=== PATIENT | male | born 1980 | race Caucasian/White ===

== ENCOUNTER 2018-03-12 03:13 | Emergency (ER) | payer OTHER ==
[~2018-03-12] VITALS: Ht 170.2 cm; Wt 113.4 kg
[~2018-03-12 03:13] MED LIST: BACTRIM DS TAB1 EACH PO; HYDROCODONE-AP1 EAC6 PO; IBUPROFEN 800800 M1 PO; LOPERAMIDE2 MG PO; NOHOMEMEDICATIONS; NORCO 5-325 TA1 EAC1 PO; ZOFRAN4 MG PO
[2018-03-12] MEDS ORDERED: PROAIR HFA8.5 GM INH (03:36)
[2018-03-12] MEDS ORDERED: TUSSIONEX PENN115 ML PO (03:36)
[2018-03-12] MEDS ORDERED: PREDNISONE50 MG PO (03:36)
[2018-03-12] MEDS ORDERED: NASONEX17 GM NASAL (03:36)
[2018-03-12 04:15] VITALS: BP 140/94
== END 2018-03-12 04:16 | disposition home or self-care (01) ==
LOC: M.ERS 03:13
DX: J40 Bronchitis, not specified as acute or chronic (principal); F41.9 Anxiety disorder, unspecified; F17.210 Nicotine dependence, cigarettes, uncomplicated

== ENCOUNTER 2019-09-04 12:43 | Emergency (ER) | payer BC ==
[~2019-09-04] VITALS: Ht 170.2 cm; Wt 117.9 kg
[~2019-09-04 12:43] MED LIST changes: +NASONEX17 GM NASAL; +PREDNISONE50 MG PO; +PROAIR HFA8.5 GM INH; +TUSSIONEX PENN115 ML PO
[2019-09-04 13:36] LABS: ABSOLUTE BASOPHILS 0.1 thou/uL (0.0-0.2); ABSOLUTE EOSINOPHILS 0.1 thou/uL (0.0-0.7); ABSOLUTE LYMPHOCYTES 1.8 thou/uL (0.8-5.3); ABSOLUTE MONOCYTES 0.7 thou/uL (0.0-1.2); ABSOLUTE NEUTROPHILS 7.8 thou/uL (1.6-8.1); BASOPHILS 0.9 %; EOSINOPHILS 1.2 %; HEMATOCRIT 46.9 % (42.0-52.0); HEMOGLOBIN 16.4 gm/dL (14.0-18.0); MCH 30.9 pg (26.0-34.0); MCV 88.4 fL (80.0-100.0); MONOCYTES 6.6 %; MPV 9.8 fl. (7.2-11.1); NUCLEATED RBCS 0 /100WBC; PLATELET COUNT* 292 thou/uL (150-400); POLYS 74.3 %; RBC 5.31 mil/uL (4.50-6.00); RDW-CV 14.8 % (10.5-14.5); WBC 10.5 thou/uL (4.0-11.0)
[2019-09-04 13:41] LABS: URINE BILIRUBIN NEGATIVE (Negative); URINE BLOOD NEGATIVE (Negative); URINE CLARITY CLEAR; URINE COLOR YELLOW; URINE GLUCOSE-RANDOM 1+ (Negative); URINE KETONES NEGATIVE (Negative); URINE LEUKOCYTES-REFLEX NEGATIVE (Negative); URINE NITRITE-REFLEX NEGATIVE (Negative); URINE PROTEIN 1+ (Negative); URINE SPECIFIC GRAVITY 1.015 (1.005-1.030); URINE UROBILINOGEN 0.2 E.U./dl (0.2-1.0)
[2019-09-04 13:44] LABS: CALCIUM 9.5 mg/dL (8.5-10.1); CREATININE 0.9 mg/dL (0.6-1.3); POTASSIUM 4.2 mmol/L (3.5-5.1)
[2019-09-04 13:48] LABS: ALBUMIN 3.8 g/dL (3.4-5.0); TOTAL BILIRUBIN 0.4 mg/dL (<0.1-1.0); TOTAL PROTEIN 8.4 g/dL (6.4-8.2)
[2019-09-04] MEDS ORDERED: ONDANSETRON ODT4 MG PO (14:16)
[2019-09-04] MEDS ORDERED: PROMETHAZINE V120 ML PO (14:16)
[2019-09-04 14:26] LABS: INFLUENZA A ANTIGEN Negative (Negative); INFLUENZA B ANTIGEN Negative (Negative)
[2019-09-04 14:31] VITALS: BP 147/99
--- NOTE | 2019-09-04 15:43 | EKG ---
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1980 Requested By: Mónica Palm Order Number: [id number] MD: Joaquin Frias Measurements Intervals [place] Rate: 83 P: 4 VA: 183 QRS: 112 QRSD: 89 T: 21 QT: 350 QTc: 412 Interpretive Statements Sinus rhythm Anterior infarct, old Borderline ST elevation, lateral leads Baseline wander in lead(s) V4,V5,V6 No previous ECG available for comparison Electronically Signed On 09-04-2019 15:43:12 DRIVER LICENSE EXAMINER by Joaquin Frias [email or web address] <ELECTRONICALLY SIGNED> By: Joaquin Frias MD, [facility] 09/04/19 1543 1302 1302 Joaquin Frias MD, FACC /EPI
== END 2019-09-04 14:32 | disposition home or self-care (01) ==
LOC: M.ERS 12:43
PROVIDERS: Physician Assistant
DX: B34.9 Viral infection, unspecified (principal); R19.7 Diarrhea, unspecified; F41.9 Anxiety disorder, unspecified; F17.210 Nicotine dependence, cigarettes, uncomplicated

== ENCOUNTER 2020-05-23 02:01 | Emergency (ER) | payer BC ==
[~2020-05-23] VITALS: Ht 170.2 cm; Wt 127.0 kg
[~2020-05-23 02:01] MED LIST changes: +ONDANSETRON ODT4 MG PO; +PROMETHAZINE V120 ML PO
[2020-05-23 04:09] VITALS: BP 130/65
== END 2020-05-23 04:09 | disposition home or self-care (01) ==
LOC: M.ERS 02:01
DX: S01.81XA Laceration without foreign body of other part of head, initial encounter (principal); F17.210 Nicotine dependence, cigarettes, uncomplicated; W22.8XXA Striking against or struck by other objects, initial encounter; Y93.89 Activity, other specified; Y92.89 Other specified places as the place of occurrence of the external cause; Y99.8 Other external cause status

== ENCOUNTER 2021-02-24 04:48 | Emergency (ER) | payer BC ==
[~2021-02-24] VITALS: Ht 170.2 cm; Wt 127.0 kg
[2021-02-24] MEDS ORDERED: MEDROLDOSEPACK PO (06:18)
[2021-02-24] MEDS ORDERED: PROMETHAZINE-C473 ML PO (06:18)
[2021-02-24] MEDS ORDERED: ZPAK PO (06:18)
[2021-02-24 06:50] VITALS: BP 141/99
[2021-02-24] MEDS ORDERED: VENTOLIN HFA 1818 GM INH (06:56)
== END 2021-02-24 06:50 | disposition home or self-care (01) ==
LOC: M.ERS 04:48
DX: J40 Bronchitis, not specified as acute or chronic (principal); Z20.822 Contact with and (suspected) exposure to COVID-19; F17.210 Nicotine dependence, cigarettes, uncomplicated

== ENCOUNTER 2021-03-10 21:55 | Emergency (ER) | payer BC ==
[~2021-03-10] VITALS: Ht 170.2 cm; Wt 127.0 kg
[~2021-03-10 21:55] MED LIST changes: +MEDROLDOSEPACK PO; +PROMETHAZINE-C473 ML PO; +VENTOLIN HFA 1818 GM INH; +ZPAK PO
[2021-03-10 22:18] LABS: ABSOLUTE BASOPHILS 0.1 thou/uL (0.0-0.2); ABSOLUTE EOSINOPHILS 0.2 thou/uL (0.0-0.7); ABSOLUTE LYMPHOCYTES 2.7 thou/uL (0.8-5.3); ABSOLUTE MONOCYTES 0.7 thou/uL (0.0-1.2); ABSOLUTE NEUTROPHILS 7.7 thou/uL (1.6-8.1); BASOPHILS 1.1 %; EOSINOPHILS 1.8 %; HEMATOCRIT 40.3 % (42.0-52.0); HEMOGLOBIN 13.7 gm/dL (14.0-18.0); LYMPHOCYTES 23.4 %; MCH 29.8 pg (26.0-34.0); MCHC 33.9 g/dL (28.0-37.0); MCV 87.9 fL (80.0-100.0); MONOCYTES 6.2 %; NUCLEATED RBCS 0 /100WBC; PLATELET COUNT* 263 thou/uL (150-400); POLYS 67.5 %; RBC 4.59 mil/uL (4.50-6.00); RDW-CV 15.4 % (10.5-14.5); WBC 11.4 thou/uL (4.0-11.0)
[2021-03-10 22:27] LABS: CALCIUM 8.5 mg/dL (8.5-10.1); CREATININE 0.8 mg/dL (0.6-1.3); POTASSIUM 3.9 mmol/L (3.5-5.1)
[2021-03-10 22:29] LABS: INR 0.9; PROTIME 10.1 Seconds (9.20-11.50)
[2021-03-10 22:38] LABS: ALBUMIN 3.3 g/dL (3.4-5.0); MAGNESIUM 1.9 mg/dL (1.8-2.4); TOTAL BILIRUBIN 0.2 mg/dL (<0.1-1.0); TOTAL PROTEIN 7.2 g/dL (6.4-8.2)
[2021-03-11] MEDS ORDERED: PRILOSEC OTC20 MG PO (01:35)
[2021-03-11] MEDS ORDERED: INDOMETHACIN 2525 MG PO (01:35)
[2021-03-11] MEDS ORDERED: HYDROCODON-ACE1 EAC8 PO (01:35)
[2021-03-11] MEDS ORDERED: ALBUTEROL2.5 MG/31 INH (01:35)
[2021-03-11 02:08] VITALS: BP 138/72
--- NOTE | 2021-03-11 11:30 | EKG ---
[place] [address] ELECTROCARDIOGRAM REPORT Name: CHRISTIANNE SEVILLA II Room: 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1980 Requested By: Esmer Leal Order Number: [id number] MD: Alton Bonilla Measurements Intervals [place] Rate: 86 P: 11 NE: 191 QRS: 112 QRSD: 89 T: 26 QT: 352 QTc: 421 Interpretive Statements Sinus rhythm Right axis deviation Probable left atrial enlargement Anterior infarct, old Compared to ECG 09/04/2019 13:02:03 ST (T wave) deviation no longer present Myocardial infarct finding still present Electronically Signed On 03-11-2021 11:30:22 CDT by Alton Bonilla [email or web address] <ELECTRONICALLY SIGNED> By: Alton Bonilla MD, [facility] 03/11/21 1130 2158 2158 Alton Bonilla MD, [facility] /EPI
== END 2021-03-11 02:09 | disposition home or self-care (01) ==
LOC: M.ERS 21:55
PROVIDERS: Emergency Medicine
DX: R09.1 Pleurisy (principal); Z20.822 Contact with and (suspected) exposure to COVID-19; F17.210 Nicotine dependence, cigarettes, uncomplicated

== ENCOUNTER 2021-05-21 12:11 | Emergency (ER) | payer BC ==
[~2021-05-21] VITALS: Ht 170.2 cm; Wt 127.0 kg
[~2021-05-21 12:11] MED LIST changes: +ALBUTEROL2.5 MG/31 INH; +HYDROCODON-ACE1 EAC8 PO; +INDOMETHACIN 2525 MG PO; +PRILOSEC OTC20 MG PO
[2021-05-21 13:05] VITALS: BP 120/90
== END 2021-05-21 13:06 | disposition home or self-care (01) ==
LOC: M.ERS 12:11
DX: U07.1 COVID-19 (principal); F17.210 Nicotine dependence, cigarettes, uncomplicated